=== PATIENT | male | born 1985 | race Caucasian/White ===

== ENCOUNTER 2018-04-29 07:50 | Emergency (ER) | payer MEDICAID ==
[~2018-04-29] VITALS: Ht 177.8 cm; Wt 85.9 kg
[2018-04-29] MEDS ORDERED: LORazepam 1MG TABLET ONE ×2 (08:27→08:44)
[2018-04-29] MEDS ORDERED: PLEASE ENTER ALLERGIES MC SCH (08:30)
[2018-04-29] MEDS ORDERED: LORazepam 1MG TABLET PO ONE (08:30)
[2018-04-29 08:40] VITALS: BP 138/87
--- NOTE | 2018-04-29 08:46 | NUR ---
TASK RN- PT REPORTS TO ED FOR ANXIETY AND GENERALIZED BODY ACHES. PT STATES HE HAS BEEN SLEEPIN THE LAST 2 NIGHTS AT THE [place] STATION, [place]. PT ELICITS TO USING FREQUENT METH AND ALCOHOL ABUSE OVER LAST WEEK. LAST DRINK YEATERDAY. PT STATES HE WANTS HELP WITH HIS DRUG ABUSE. PT A&OX4, APPEARS ANXIOUS. RESTING ON GURNEY, SPO2 MONITOR IN PLACE. CALL LIGHT IN REACH. PT PROVIDED WITH WARM BLANKET. REPORT TO LESLEE MCKEON.
--- NOTE | 2018-04-29 09:48 | NUR ---
LATE NOTE ENTRY FOR 929. Patient given discharge instructions and they have confirmed that they understand the instructions. Patient ambulatory with steady gait. PROVIDED PT BUS PASS AND CARE HOME LIST. PT LEFT WITH ALL PERSONAL BELONGINGS.
== END 2018-04-29 09:52 | disposition home or self-care (01) ==
LOC: ED 08:29
DX: F15.10 Other stimulant abuse, uncomplicated (principal); F15.129 Other stimulant abuse with intoxication, unspecified
CPT/HCPCS: 99282

== ENCOUNTER 2018-04-29 14:43 | Emergency (ER) | payer MEDICAID ==
[~2018-04-29] VITALS: Ht 180.3 cm; Wt 85.8 kg
[2018-04-29 14:46] VITALS: BP 120/81
[2018-04-29] MEDS ORDERED: IBUPROFEN 200 MG TABLET PO ONE (15:30)
[2018-04-29] MEDS ORDERED: IBUPROFEN 200 MG TABLET ONE (15:31)
--- NOTE | 2018-04-29 15:36 | NUR ---
Patient/Caregiver given discharge instructions and they have confirmed that they understand the instructions. Patient ambulatory with steady gait.
== END 2018-04-29 15:38 | disposition home or self-care (01) ==
LOC: ED 15:10
DX: L03.115 Cellulitis of right lower limb (principal); F17.200 Nicotine dependence, unspecified, uncomplicated
CPT/HCPCS: 99283